=== PATIENT | female | born 1975 | race Hispanic/Latino ===

== ENCOUNTER 2018-04-13 09:05 | Emergency (ER) | payer SELFPAY ==
--- NOTE | 2018-04-13 10:05 | EDPHYS ---
Physician Documentation [facility] Name: Mayi Muñoz Age: 42 yrs Sex: Female : 1975 Arrival Date: 04/13/2018 Time: 09:08 Bed 18 Private MD: None, None ED Physician Julián Barnett HPI: 04/13 09:59 This 42 yrs old Female presents to ER via Ambulatory with complaints of rn Numbness Of Arm. 09:59 The patient or guardian complains of tingling. The complaints affect the right arm. rn Onset: The symptoms/episode began/occurred this morning. Associated signs and symptoms: Pertinent positives: numbness, Pertinent negatives: decreased range of motion, fever, warmth, weakness. Associated signs and symptoms: Pertinent negatives: swelling. Severity of symptoms: At their worst the symptoms were mild, in the emergency department the symptoms have improved. The patient has not experienced similar symptoms in the past. Reports right arm tingling, intermittent since this AM, lasts for a minute, then goes away on own, she was not too concerned but mother told her to come in, no other focal neurological problem/complaint, no chest pain/sob. No previous neck problems.. 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 - Social history:: Smoking status: Patient uses tobacco products, smokes one-half pack cigarettes per day. - Ebola Screening: : No symptoms or risks identified at this time. - Family history:: not pertinent. - Hospitalizations: : No recent hospitalization is reported. ROS: 09:59 Constitutional: Negative for fever, chills, and weight loss, Eyes: Negative for injury, rn pain, redness, and discharge, Neck: Negative for injury, pain, and swelling, Cardiovascular: Negative for chest pain, palpitations, and edema, Respiratory: Negative for shortness of breath, cough, wheezing, and pleuritic chest pain, Abdomen/GI: Negative for abdominal pain, nausea, vomiting, diarrhea, and constipation, MS/Extremity: Negative for injury and deformity, Skin: Negative for injury, rash, and discoloration, Neuro: Negative for headache, weakness, and seizure. Exam: 09:59 Constitutional: This is a well developed, well nourished patient who is awake, alert, rn and in no acute distress. Head/Face: Normocephalic, atraumatic. Eyes: Pupils equal round and reactive to light, extra-ocular motions intact. Lids and lashes normal. Conjunctiva and sclera are non-icteric and not injected. Cornea within normal limits. Periorbital areas with no swelling, redness, or edema. Neck: Trachea midline, no thyromegaly or masses palpated, and no cervical lymphadenopathy. Supple, full range of motion without nuchal rigidity, or vertebral point tenderness. No Meningismus. Cardiovascular: Regular rate and rhythm with a normal S1 and S2. No gallops, murmurs, or rubs. Normal PMI, no JVD. No pulse deficits. Respiratory: Lungs have equal breath sounds bilaterally, clear to auscultation and percussion. No rales, rhonchi or wheezes noted. No increased work of breathing, no retractions or nasal flaring. MS/ Extremity: Pulses equal, no cyanosis. Neurovascular intact. Full, normal range of motion. Equal circumference. Neuro: Awake and alert, GCS 15, oriented to person, place, time, and situation. Cranial nerves II-XII grossly intact. Motor strength 5/5 in all extremities. Sensory grossly intact. Cerebellar exam normal. Normal gait. Vital Signs: 09:26 BP 126 / 83; Pulse 62; Resp 16; Temp 98.0(O); Pulse Ox 97% on R/A; Weight 81.65 kg; mh5 Height 5 ft. 3 in. (160.02 cm); Pain 0/10; 09:26 Body Mass Index 31.89 (81.65 kg, 160.02 cm) mh5 MDM: 09:17 Patient medically screened. rn 09:59 Refusal of service: The patient/guardian displays adequate decision making capability rn and despite a detailed discussion of alternatives, benefits, risks, and consequences refuses: CT Scan, all lab tests. ED course: Pt reports feels better after discussion, we told her we still recommend ct scan and bloodwork, patient refuses, states is self pay and would like to leave now, understands risks of undiagnosed numbness, and signed out AMA.. 04/13 09:23 Order name: CBC with Diff rn 04/13 09:23 Order name: Basic Metabolic Panel rn 04/13 09:23 Order name: Urine Microscopic Only rn 04/13 09:23 Order name: Magnesium rn 04/13 09:23 Order name: Urine Test (obtain specimen); Complete Time: 09:29 rn 04/13 09:23 Order name: Urine Dipstick-Ancillary (obtain specimen); Complete Time: 09:29 rn Administered Medications: No medications were administered Disposition: 04/13/18 10:03 Patient has left against medical advice. Impression: Paresthesia of skin. - Patients states they are going to Home. - Condition is Stable. - Discharge Instructions: Paresthesia. Follow up: Private Physician; When: As needed; Reason: Recheck today's complaints, Re-evaluation by your physician. - Problem is new. - Symptoms have improved. Signatures: Dispatcher [employer] EDMS Julián Barnett MD MD rn Leal, Jahala, RN RN jl7 Corrections: (The following items were deleted from the chart) 09:49 09:23 Head C Spine MPR Wo Con+CT.RAD.BRZ ordered. EDOH EDMS 09:51 09:23 IV Saline Lock ordered. rn panchito 09:51 09:23 EKG - Nurse/Tech ordered. teddy flanagan 09:53 09:23 CBC with Automated Diff ordered. EDMS EDMS 09:53 09:23 Urine Microscopic Only ordered. EDOH EDMS 09:53 09:38 URINE DIPSTICK--ANCILLARY+U.LAB.BRZ ordered. EDMS EDMS 09:53 09:38 URINE --ANCILLARY+UC.LAB.BRZ ordered. EDMS EDMS 09:54 09:23 Basic Metabolic Panel ordered. EDMS EDMS 09:54 09:23 Magnesium ordered. EDMS EDMS 10:06 10:03 04/13/2018 10:03 Patients has left against medical advice. Impression: jl7 Paresthesia of skin. Patient states they are going to Home. Condition is Stable. Follow up: Private Physician; When: As needed; Reason: Recheck today's complaints, Re-evaluation by your physician. Problem is new. Symptoms have improved. rn
--- NOTE | 2018-04-13 10:05 | ER ---
Nurse's Notes [facility] Name: Mayi Muñoz Age: 42 yrs Sex: Female : 1975 Arrival Date: 04/13/2018 Time: 09:08 Bed 18 Private MD: None, None Diagnosis: Paresthesia of skin Presentation: 04/13 09:36 Presenting complaint: Patient states: "My right arm started feeling tingly this morning jl7 while I was putting my makeup on." Reports tingling from bicep down to hand. Denies weakness, document controller strong and equal. Transition of care: patient was not received from another setting of care. Onset of symptoms was April 13, 2018 at 07:30. Risk Assessment: Do you want to hurt yourself or someone else? Patient reports no desire to harm self or others. Initial Sepsis Screen: Does the patient meet any 2 criteria? No. Patient's initial sepsis screen is negative. Does the patient have a suspected source of infection? No. Patient's initial sepsis screen is negative. Care prior to arrival: None. 09:36 Method Of Arrival: Ambulatory jl7 09:36 Acuity: CHRISTINE 3 jl7 Triage Assessment: 09:39 General: Appears in no apparent distress. comfortable, Behavior is calm, cooperative, jl7 appropriate for age. Pain: Denies pain. EENT: No signs and/or symptoms were reported regarding the EENT system. Neuro: Level of Consciousness is awake, alert, obeys commands, Oriented to person, place, time, situation, Software Engineering Analyst are equal bilaterally Moves all extremities. Gait is steady, Speech is normal, Facial symmetry appears normal, Pupils are PERRLA. Cardiovascular: Patient's skin is warm and dry. Respiratory: Airway is patent Respiratory effort is even, unlabored, Respiratory pattern is regular, symmetrical. GI: No signs and/or symptoms were reported involving the gastrointestinal system. : No signs and/or symptoms were reported regarding the genitourinary system. Derm: Skin is pink, warm \\T\\ dry. Musculoskeletal: Range of motion: intact in all extremities. 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 - Social history:: Smoking status: Patient uses tobacco products, smokes one-half pack cigarettes per day. - Ebola Screening: : No symptoms or risks identified at this time. - Family history:: not pertinent. - Hospitalizations: : No recent hospitalization is reported. Screenin:48 Abuse screen: Denies threats or abuse. Denies injuries from another. Nutritional jl7 screening: No deficits noted. Tuberculosis screening: No symptoms or risk factors identified. Fall Risk None identified. Assessment: 09:35 General: See triage assessment. jl7 09:47 Reassessment: Pt states "I don't want any blood work or anything and if it gets worse jl7 or I have any other symptoms then I will come back." Dr. Barnett notified and pt instructed that she will have to sign out AMA. Pt verbalized understanding. Vital Signs: 09:26 BP 126 / 83; Pulse 62; Resp 16; Temp 98.0(O); Pulse Ox 97% on R/A; Weight 81.65 kg; mh5 Height 5 ft. 3 in. (160.02 cm); Pain 0/10; 09:26 Body Mass Index 31.89 (81.65 kg, 160.02 cm) 5 ED Course: 09:08 Patient arrived in ED. mr 09:08 None, None is Private Physician. mr 09:17 Julián Barnett MD is Attending Physician. rn 09:26 Rayray Riley RN is Primary Nurse. jl7 09:28 Patient has correct armband on for positive identification. Placed in gown. Bed in low mh5 position. Call light in reach. Side rails up X 1. Adult w/ patient. Warm blanket given. Pulse ox on. NIBP on. 09:28 Urine collected: clean catch specimen, clear. mh5 09:29 Urine Microscopic Only Sent. mh5 09:38 Triage completed. jl7 09:39 Arm band placed on right wrist. jl7 09:42 Patient moved to OR via wheelchair. vr Administered Medications: No medications were administered Outcome: 10:05 AMA AMA form signed jl7 10:06 Patient left the ED. jl7 Signatures: Jeanna Retana Julián Barnett MD MD rn Davis, Victoria vr Martinez, Maria [facility] Riley, Jahala, RN RN jl7 Corrections: (The following items were deleted from the chart) 09:53 09:29 Urine Microscopic Only drawn and sent. mh5 MARAL
[2018-04-13 10:11] VITALS: BP 126/83; TEMP 98; O2SAT 97
== END 2018-04-13 10:06 | disposition left against medical advice (07) ==
LOC: ER 09:05
DX: R20.2 Paresthesia of skin (principal); F17.210 Nicotine dependence, cigarettes, uncomplicated
CPT/HCPCS: 99284

== ENCOUNTER 2018-10-28 23:02 | Emergency (ER) | payer SELFPAY ==
[2018-10-29] MEDS ORDERED: NA CHLORIDE 0.9% 1,000 ML ONE (00:28)
[2018-10-29] MEDS ORDERED: LORazepam 2 MG/ML VIAL ONE (00:28)
[2018-10-29 00:54] LABS: Hematocrit 36.6 % (36.0-45.0); Lymphocytes % 12.7 % (15.3-44.8); MPV 8.4 fL (7.6-11.3); Monocytes % 8.4 % (3.3-12.3); RBC Red Blood Cell Count 4.77 M/uL (3.86-4.86)
[2018-10-29 00:55] LABS: Absolute Lymphocytes (CBC) 2.1 K/uL (0.7-4.9); Absolute Monocytes 1.4 K/uL (0.1-1.3); Absolute Neutrophil 13.1 K/uL (1.8-8.0); Basophils % 0.7 % (0-1.3); Eosinophils % 0.5 % (0-4.4)
[2018-10-29 01:02] LABS: Potassium 4.7 mmol/L (3.5-5.1)
[2018-10-29 01:03] LABS: Protime INR 1.07
[2018-10-29 01:52] LABS: Urine Blood 1+ (NEG); Urine Glucose NEGATIVE (NEG); Urine Protein TRACE (NEG)
--- NOTE | 2018-10-29 03:27 | ER ---
Nurse's Notes [facility] Name: Mayi Muñoz Age: 43 yrs Sex: Female : 1975 Arrival Date: 10/28/2018 Time: 23:03 Bed 18 Private MD: Diagnosis: Fall down embankment (hill);Pain in left leg-from fall;Low back pain-from fall Presentation: 10/28 22:55 Presenting complaint: EMS states: Patient's under [place] police academy instructor's custody cc3 when she ran away from the officers when they asked for her ID and [place] [facility] [place] [address]. Patient complaining of left leg pain and swelling. Transition of care: patient was not received from another setting of care. Onset of symptoms was October 28, 2018. Risk Assessment: Do you want to hurt yourself or someone else? Patient reports no desire to harm self or others. Initial Sepsis Screen: Does the patient meet any 2 criteria? No. Patient's initial sepsis screen is negative. Does the patient have a suspected source of infection? No. Patient's initial sepsis screen is negative. Care prior to arrival: None. 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 - Social history:: Smoking status: Patient uses tobacco products, smokes one-half pack cigarettes per day. - Ebola Screening: : No symptoms or risks identified at this time. Screenin:55 Abuse screen: Denies threats or abuse. Denies injuries from another. Nutritional cc3 screening: No deficits noted. Tuberculosis screening: No symptoms or risk factors identified. Fall Risk Ambulatory Aid- None/Bed Rest/Nurse Assist (0 pts). Gait- Impaired (20 pts.). Mental Status- Oriented to own ability (0 pts). Assessment: 23:10 General: Appears in no apparent distress. uncomfortable, Behavior is cooperative, jb4 anxious. Pain: Complains of pain in left leg Pain does not radiate. Pain currently is 10 out of 10 on a pain scale. Pain began 1 hour ago. Neuro: Level of Consciousness is awake, alert, obeys commands, Oriented to person, place, time, situation. Cardiovascular: Patient's skin is warm and dry. Respiratory: Airway is patent Respiratory effort is even, unlabored, Respiratory pattern is regular, symmetrical. GI: No signs and/or symptoms were reported involving the gastrointestinal system. : No signs and/or symptoms were reported regarding the genitourinary system. EENT: No signs and/or symptoms were reported regarding the EENT system. Derm: Skin is pink, warm \\T\\ dry. Multiple abrasions noted to both legs. Musculoskeletal: Range of motion: limited in left knee Swelling present in lateral aspect of left knee. 10/29 00:00 Reassessment: Patient appears in no apparent distress at this time. Patient and/or jb4 family updated on plan of care and expected duration. Pain level reassessed. Patient is alert, oriented x 3, equal unlabored respirations, skin warm/dry/pink. PT reports being suicidal. "When I jumped off the bridge I was trying to kill myself." Provider notified. Placed on suicide precautions. 00:15 Reassessment: Pt refused pain medicine and asked for anxiety medication. Provider khoa notified, See [facility] for orders. 00:30 Reassessment: Pt refused to keep on C-collar. Pt removed C-collar. Pt D/c'd IV. jb4 00:50 Reassessment: Pt to radiology. jb4 01:30 Reassessment: Patient appears in no apparent distress at this time. Patient and/or jb4 family updated on plan of care and expected duration. Pain level reassessed. Patient is alert, oriented x 3, equal unlabored respirations, skin warm/dry/pink. 02:30 Reassessment: Patient appears in no apparent distress at this time. Patient and/or jb4 family updated on plan of care and expected duration. Pain level reassessed. Patient is alert, oriented x 3, equal unlabored respirations, skin warm/dry/pink. 03:30 Reassessment: Patient appears in no apparent distress at this time. Patient and/or jb4 family updated on plan of care and expected duration. Pain level reassessed. Patient is alert, oriented x 3, equal unlabored respirations, skin warm/dry/pink. Psych: 00:00 Subjective: Patient's mood is sad, irritable, Delusions are denied, Hallucinations are jb4 denied Having thoughts of suicide. Plan for suicide is jumping of a bridge. Objective: Patient is cooperative, Speech is normal, Affect is appropriate. Interventions: Removed personal items and placed in bag. Patient placed in hospital gown. Searched person for dangerous items. Urine collected and sent for urine drug test. Suicide Risk Assessment: Sad Person Scale: Sex of patient: Female: Score 0 points. Age of patient: Score 0 point if patient falls outside of specified age parameters. Depression: Score 1 point if signs of depression are present. Previous Attempt: Score 1 point if patient has previously attempted suicide. Substance Abuse: Score 0 point if patient does not abuse alcohol or drugs. Rational Thinking: Score 1 point if patient is lacking rational thinking. Social Support: Score 0 if social support is present/available. Organized Plan: Score 1 point if patient had a plan in place. Relationship: Score 1 point if patient is , , , or for a single male Chronic Sickness: Score 1 point if patient has illness, chronic, debilitating, or severe. TOTAL POINTS: If total points are 5-6, proposed clinical action is to strongly consider hospitalization, depending upon confidence in the follow-up arrangement. Implement suicide precautions. Safety Checks: Personal items have been removed. Door is open. No visitors are present at this time. 00:00 Pt denies substance abuse. Commitment: In police custody. jb4 Vital Signs: 10/28 22:55 BP 120 / 81; Pulse 115; Resp 20 S; Temp 98.3(O); Pulse Ox 98% on R/A; Weight 95.25 kg cc3 (R); Height 5 ft. 3 in. (160.02 cm) (R); Pain 10/10; 23:45 BP 132 / 81; Pulse 97; Resp 20; Pulse Ox 98% on R/A; jb4 10/29 00:10 BP 125 / 88; Pulse 121; Resp 20; Pulse Ox 99% on R/A; jb4 01:50 BP 141 / 86; Pulse 92; Resp 18; Pulse Ox 97% on R/A; jb4 03:00 BP 136 / 85; Pulse 88; Resp 16; Pulse Ox 100% on R/A; jb4 10/28 22:55 Body Mass Index 37.20 (95.25 kg, 160.02 cm) cc3 ED Course: 10/28 22:55 Arm band placed on right wrist. Patient notified of wait time. cc3 22:55 Patient has correct armband on for positive identification. Bed in low position. Call cc3 light in reach. Side rails up X 1. Pulse ox on. NIBP on. 23:03 Patient arrived in ED. ds1 23:05 Gilmar Chou PA is PHCP. cp 23:05 Margarito Coe MD is Attending Physician. cp 23:14 Naif Mace RN is Primary Nurse. jb4 23:18 Triage completed. cc3 10/29 00:00 Safety Checks: Personal items have been removed. The door is open or patient has been jb4 placed in a hallway bed/chair. There are no family/friend visitors at this time Sitter present at this time. 00:15 Safety Checks: Personal items have been removed. The door is open or patient has been jb4 placed in a hallway bed/chair. There are no family/friend visitors at this time Sitter present at this time. 00:24 Radiology exam delayed due to lab results not completed at this time. (BUN/Creatinine) kw1 test not completed at this time. 00:30 Safety Checks: Personal items have been removed. The door is open or patient has been jb4 placed in a hallway bed/chair. There are no family/friend visitors at this time Sitter present at this time. 00:43 Radiology exam delayed due to lab results not completed at this time. (BUN/Creatinine) kw1 test not completed at this time. 00:45 Safety Checks: Personal items have been removed. The door is open or patient has been jb4 placed in a hallway bed/chair. There are no family/friend visitors at this time Sitter present at this time. 01:00 Safety Checks: Personal items have been removed. The door is open or patient has been jb4 placed in a hallway bed/chair. There are no family/friend visitors at this time Sitter present at this time. 01:15 Safety Checks: Personal items have been removed. The door is open or patient has been jb4 placed in a hallway bed/chair. There are no family/friend visitors at this time Sitter present at this time. 01:25 Inserted saline lock: 22 gauge in left antecubital area, using aseptic technique. fc 01:30 Safety Checks: Personal items have been removed. The door is open or patient has been jb4 placed in a hallway bed/chair. There are no family/friend visitors at this time Sitter present at this time. 01:45 Safety Checks: Personal items have been removed. The door is open or patient has been jb4 placed in a hallway bed/chair. There are no family/friend visitors at this time Sitter present at this time. 02:00 Safety Checks: Personal items have been removed. The door is open or patient has been jb4 placed in a hallway bed/chair. There are no family/friend visitors at this time Sitter present at this time. 02:00 Safety checks: Items removed: yes. Door open/sign placed on door: yes. Family/friend ar5 present: no. Sitter present: Yes. 02:00 IV discontinued, intact, bleeding controlled, No redness/swelling at site. jb4 02:15 Safety Checks: Personal items have been removed. The door is open or patient has been jb4 placed in a hallway bed/chair. There are no family/friend visitors at this time Sitter present at this time. 02:15 Safety checks: Items removed: yes. Door open/sign placed on door: yes. Family/friend ar5 present: no. Sitter present: Yes. 02:30 Safety checks: Items removed: yes. Door open/sign placed on door: yes. Family/friend ar5 present: no. Sitter present: Yes. 02:45 Safety Checks: Personal items have been removed. The door is open or patient has been jb4 placed in a hallway bed/chair. There are no family/friend visitors at this time Sitter present at this time. 02:50 XRAY Femur LEFT In Process Unspecified. EDMS 02:50 XRAY Tib Fib LEFT In Process Unspecified. EDMS 02:50 CT Traumagram (Head C Spine CAP W Con) In Process Unspecified. EDMS 03:00 Safety Checks: Personal items have been removed. The door is open or patient has been jb4 placed in a hallway bed/chair. There are no family/friend visitors at this time Sitter present at this time. 03:15 Safety Checks: Personal items have been removed. The door is open or patient has been jb4 placed in a hallway bed/chair. There are no family/friend visitors at this time Sitter present at this time. 03:30 Safety Checks: Personal items have been removed. The door is open or patient has been jb4 placed in a hallway bed/chair. There are no family/friend visitors at this time Sitter present at this time. 03:36 IV discontinued, intact, bleeding controlled, No redness/swelling at site. mt 03:42 No provider procedures requiring assistance completed. jb4 Administered Medications: 00:23 Drug: NS 0.9% 1000 ml Route: IV; Rate: 1 bolus; Site: left antecubital; jb4 03:39 Follow up: Response: No adverse reaction; IV Status: Completed infusion jb4 00:23 Drug: Ativan 0.5 mg Route: IVP; Site: left antecubital; jb4 01:47 Follow up: Response: No adverse reaction jb4 00:24 Not Given (Patient Refused): morphine 4 mg IVP once jb4 03:39 Not Given (Patient Refused): Tetanus-Diphtheria Toxoid Adult 0.5 ml IM once jb4 03:40 Not Given (Patient Refused): Zofran 4 mg IVP once; over 2 minutes jb4 Outcome: 03:26 Discharge ordered by MD. díaz 03:30 Discharged to Law Enforcement jb4 03:30 Condition: stable 03:30 Discharge instructions given to patient, police, Instructed on discharge instructions, follow up and referral plans. Demonstrated understanding of instructions, follow-up care. 03:43 Patient left the ED. jb4 Signatures: Dispatcher [employer] EDMS Endeina Curtis RN RN fc Sanford, Demi ds1 Page, Corey, PA PA cp Bryson, James, RN RN jb4 Thompson, Moriah mt Wilhelm, Kimberly kw1 Cordel, Charlene cc3 Elisa Alicea5 Corrections: (The following items were deleted from the chart) 10/28 23:23 22:55 Presenting complaint: EMS states: Patient's under [place] police academy instructor's cc3 custody when she ran away from the officers when they asked for her ID and [place] [facility] [place] [address]. cc3 10/29 02:03 00:00 Reassessment: Patient appears in no apparent distress at this time. Patient jb4 and/or family updated on plan of care and expected duration. Pain level reassessed. Patient is alert, oriented x 3, equal unlabored respirations, skin warm/dry/pink. jb4 02: 00:00 Reassessment: Patient appears in no apparent distress at this time. Patient jb4 and/or family updated on plan of care and expected duration. Pain level reassessed. Patient is alert, oriented x 3, equal unlabored respirations, skin warm/dry/pink. jb4 02: 02:03 Reassessment: khoa couch
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
[2018-10-29] MEDS ORDERED: TETANUS & DIPHTHERIA TOX,ADULT 0.5 ML VIAL ONE (03:43)
[2018-10-29 04:13] VITALS: BP 136/85; O2SAT 100
--- NOTE | 2018-10-29 10:40 | RAD REPORT ---
EXAM DESCRIPTION: RAD - Femur Left - 10/29/2018 1:15 am CLINICAL HISTORY: fall;Pain COMPARISON: Femur Left dated 12/18/2014 FINDINGS: No acute fracture is seen. Prominent osteochondroma is seen involving the distal femur.
--- NOTE | 2018-10-29 10:41 | RAD REPORT ---
EXAM DESCRIPTION: RAD - Tib Fib Left - 10/29/2018 1:15 am CLINICAL HISTORY: fall;Pain Trauma COMPARISON: No comparisons FINDINGS: Intramedullary nayeli is seen within the tibia. No acute fracture is seen. Surgical marlene a re present along the medial leg. Prominent femur osteochondroma distally.
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
== END 2018-10-29 03:43 | disposition home or self-care (01) ==
LOC: ER 23:02
DX: M79.605 Pain in left leg (principal); M54.5 Low back pain; W17.81XA Fall down embankment (hill), initial encounter; F31.9 Bipolar disorder, unspecified; F17.210 Nicotine dependence, cigarettes, uncomplicated
CPT/HCPCS: 36415; 70450; 71260; 72125; 74177; 80048; 81003; 81025; 85025; 85610; 85730; 86850; 86900; 86901; 90714; 96361; 96374; 99285; J7030; Q9967